=== PATIENT | female | born 1980 | race Caucasian/White ===

== ENCOUNTER 2017-07-08 13:15 | Emergency (ER) | payer BC | END 2017-07-08 17:15 | disposition home or self-care (01) | LOC: D.ER 13:15 | DX: I80.9 Phlebitis and thrombophlebitis of unspecified site (principal) ==

== ENCOUNTER 2018-01-09 12:46 | Emergency (ER) | payer BC | END 2018-01-09 16:04 | disposition left against medical advice (07) | LOC: D.ER 12:46 | DX: M54.5 Low back pain (principal); V49.9XXA Car occupant (driver) (passenger) injured in unspecified traffic accident, initial encounter; Y93.89 Activity, other specified; Y92.410 Unspecified street and highway as the place of occurrence of the external cause ==